=== PATIENT | female | born 1950 | race Caucasian/White ===

== ENCOUNTER 2016-10-19 13:31 | Outpatient (CLI) | payer OTHER ==
--- NOTE | 2016-10-19 14:49 | RAD ---
AP VIEW CHEST WELL SUPINE AND UPRIGHT VIEWS ABDOMEN: DATE: 10/19/16. HISTORY: Abdominal distention for 3 months. FINDINGS: AP view chest as well as supine and upright views of the abdomen were obtained. AP view chest is unremarkable. No evidence of active intrathoracic disease is seen. Two views abdomen demonstrate abdominal gas pattern to be nonspecific. No evidence of obstruction o r ileus is seen. No dilated loops of bowel seen. No evidence of free intraperitoneal air is seen. IMPRESSION: Unremarkable AP view chest and 2 views abdomen. POS: [facility]
== END 2016-10-19 13:32 | disposition home or self-care (01) ==
LOC: MADRAD 13:31
PROVIDERS: ATTEND General Practice
DX: R14.0 Abdominal distension (gaseous) (principal)
CPT/HCPCS: 74022

== ENCOUNTER 2017-04-21 12:57 | Outpatient (CLI) | payer MEDICARE ==
--- NOTE | 2017-04-21 15:55 | ULT ---
ULTRASOUND UPPER CHEST AT THE STERNAL NOTCH 04/21/17 INDICATION: There is a palpable area of fullness at this region. No subcutaneous mass identified by ultrasound. Subcutaneous adipose at this level is seen and may cor relate to the palpable fullness. IMPRESSION: No evidence of mass seen by ultrasound. POS: [facility]
== END 2017-04-21 12:58 | disposition home or self-care (01) ==
LOC: MADULT 12:57
PROVIDERS: ATTEND General Practice
DX: R22.1 Localized swelling, mass and lump, neck (principal)
CPT/HCPCS: 76999

== ENCOUNTER 2018-03-10 14:04 | Outpatient (CLI) | payer MEDICARE ==
--- NOTE | 2018-03-10 15:46 | RAD ---
LUMBAR SPINE THREE VIEWS: 03/10/18 HISTORY: Back pain. FINDINGS: There is compression of the L3 vertebral body with about 40% loss of height. No subluxation is seen. There are vascular calcifications. IMPRESSION: Compression fracture of L3. POS: [facility]
--- NOTE | 2018-03-10 15:51 | RAD ---
PELVIC MINIMUM THREE VIEWS: History: 67-year-old female with history of low back pain without recent trauma. FINDINGS: Three views of the pelvis performed. There are some degenerative changes of the hip joints and AC jaquan nts as well as lumbar spondylosis with prominent vascular calcifications. No evidence for acute fract ure or dislocation. IMPRESSION: Degenerative changes both hip joints and SI joints without acute fracture or dislocation. POS: [facility]
== END 2018-03-10 14:05 | disposition home or self-care (01) ==
LOC: MADRAD 14:04
PROVIDERS: ATTEND General Practice
DX: M54.5 Low back pain (principal); R10.2 Pelvic and perineal pain; S32.039A Unspecified fracture of third lumbar vertebra, initial encounter for closed fracture
CPT/HCPCS: 72110; 72190

== ENCOUNTER 2018-03-28 13:46 | Outpatient (CLI) | payer MEDICARE ==
[2018-03-28 14:30] LABS: Albumin 3.6 g/dL (3.4-4.8); Anion Gap 15 mmol/L (10-20); BUN (Urea Nitrogen) 38 mg/dL (9.8-20.1); BUN/Creatinine Ratio 18.91; Calc. Creatinine Clearance 0 mL/min (70-130); Calcium 9.3 mg/dL (7.8-10.44); Carbon Dioxide 27 mmol/L (23-31); Chloride 102 mmol/L (98-107); Estimated GFR-MDRD 25; Glucose 71 mg/dL (80-115); Phosphorus 3.1 mg/dL (2.3-4.7); Potassium 4.4 mmol/L (3.5-5.1); Sodium 140 mmol/L (136-145)
[2018-03-28 17:31] LABS: Bilirubin Negative (Negative); Blood, Urine Negative (Negative); Glucose, Urine (Dipstick) Negative (Negative); Leukocyte Trace (Negative); Nitrite Positive (Negative); Protein, Urine (Dipstick) Negative (Neg-Trace); Urobilinogen 0.2 mg/dL (0.2-1.0); pH, Urine 6.5 (5.0-9.0)
[2018-03-28 17:32] LABS: Clarity Hazy (Clear)
[2018-03-28 17:41] LABS: Bacteria/HPF 4+ HPF (None Seen); RBC/HPF None Seen HPF (0-3); Squamous Epithelial 0-3 HPF (0-3)
[2018-03-28 20:50] LABS: Creatinine, Urine 53.11 mg/dL (47-110)
[2018-03-28 20:52] LABS: Protein, Urine Random Quant Less than 10 mg/dL (1-14)
== END 2018-03-28 13:47 | disposition home or self-care (01) ==
LOC: MADLAB 13:46
PROVIDERS: ATTEND General Practice
DX: M48.56XD Collapsed vertebra, not elsewhere classified, lumbar region, subsequent encounter for fracture with routine healing (principal); K74.60 Unspecified cirrhosis of liver
CPT/HCPCS: 80069; 81003; 81015; 82306; 82570; 83970; 84156

== ENCOUNTER 2018-04-21 14:38 | Outpatient (CLI) | payer MEDICARE ==
--- NOTE | 2018-04-21 16:49 | RAD ---
LUMBAR SPINE 3 VIEWS: Date: 04/21/18 HISTORY: Back pain. FINDINGS: Comparison made with exam of 03/10/18. FINDINGS/IMPRESSION: Compression of L3 vertebral body with about 40% loss of height is stable. There are new compressions involving the L1 and L2 vertebrae (moderate at L1 and mild at L2). No subluxation is seen. Vascular c alcifications are present. POS: [facility]
== END 2018-04-21 14:39 | disposition home or self-care (01) ==
LOC: MADRAD 14:38
PROVIDERS: ATTEND General Practice
DX: M54.5 Low back pain (principal); I70.90 Unspecified atherosclerosis
CPT/HCPCS: 72100

== ENCOUNTER 2018-05-30 13:47 | Outpatient (CLI) | payer MEDICARE ==
[2018-05-30 14:01] LABS: Anion Gap 17 mmol/L (10-20); BUN (Urea Nitrogen) 30 mg/dL (9.8-20.1); Calc. Creatinine Clearance 0 mL/min (70-130); Calcium 9.3 mg/dL (7.8-10.44); Carbon Dioxide 22 mmol/L (23-31); Chloride 103 mmol/L (98-107); Estimated GFR-MDRD 33; Glucose 73 mg/dL (80-115); Potassium 4.6 mmol/L (3.5-5.1); Sodium 137 mmol/L (136-145)
== END 2018-05-30 13:48 | disposition home or self-care (01) ==
LOC: MADLAB 13:47
PROVIDERS: ATTEND General Practice
DX: K74.60 Unspecified cirrhosis of liver (principal); M48.56XD Collapsed vertebra, not elsewhere classified, lumbar region, subsequent encounter for fracture with routine healing
CPT/HCPCS: 80048

== ENCOUNTER 2018-05-31 15:06 | Outpatient (CLI) | payer MEDICARE ==
[2018-05-31 15:43] LABS: Bilirubin Negative (Negative); Blood, Urine Negative (Negative); Glucose, Urine (Dipstick) Negative (Negative); Leukocyte Small (Negative); Nitrite Negative (Negative); Protein, Urine (Dipstick) Negative (Neg-Trace); Specific Gravity, Urine 1.015 (1.005-1.030); Urobilinogen 0.2 mg/dL (0.2-1.0)
[2018-05-31 16:13] LABS: Bacteria/HPF 4+ HPF (None Seen); Clarity Slightly Cloudy (Clear); RBC/HPF 0-3 HPF (0-3)
== END 2018-05-31 15:07 | disposition home or self-care (01) ==
LOC: MADLAB 15:06
PROVIDERS: ATTEND General Practice
DX: K74.60 Unspecified cirrhosis of liver (principal); M48.56XD Collapsed vertebra, not elsewhere classified, lumbar region, subsequent encounter for fracture with routine healing
CPT/HCPCS: 81001

== ENCOUNTER 2018-07-18 15:23 | Outpatient (CLI) | payer MEDICARE ==
[2018-07-18 16:34] LABS: Anion Gap 14 mmol/L (10-20); BUN (Urea Nitrogen) 30 mg/dL (9.8-20.1); Calc. Creatinine Clearance 0 mL/min (70-130); Calcium 8.7 mg/dL (7.8-10.44); Carbon Dioxide 24 mmol/L (23-31); Chloride 106 mmol/L (98-107); Estimated GFR-MDRD 37; Glucose 82 mg/dL (80-115); Potassium 4.3 mmol/L (3.5-5.1); Sodium 140 mmol/L (136-145)
== END 2018-07-18 15:24 | disposition home or self-care (01) ==
LOC: MADLAB 15:23
PROVIDERS: ATTEND General Practice
DX: M48.56XD Collapsed vertebra, not elsewhere classified, lumbar region, subsequent encounter for fracture with routine healing (principal); M47.816 Spondylosis without myelopathy or radiculopathy, lumbar region
CPT/HCPCS: 80048

== ENCOUNTER 2018-08-15 12:29 | Outpatient (CLI) | payer MEDICARE ==
[2018-08-15 12:59] LABS: ALT (SGPT) Less than 7 U/L (8-55); AST (SGOT) 16 U/L (5-34); Alkaline Phosphatase 128 U/L (40-150); Bilirubin, Direct 0.4 mg/dL (0.1-0.3); Bilirubin, Total 0.8 mg/dL (0.2-1.2); Protein, Total 5.2 g/dL (6.0-8.3)
== END 2018-08-15 12:30 | disposition home or self-care (01) ==
LOC: MADLAB 12:29
PROVIDERS: ATTEND Physician Assistant
DX: M48.56XD Collapsed vertebra, not elsewhere classified, lumbar region, subsequent encounter for fracture with routine healing (principal); M47.816 Spondylosis without myelopathy or radiculopathy, lumbar region
CPT/HCPCS: 80076

== ENCOUNTER 2018-10-24 13:39 | Outpatient (CLI) | payer MEDICARE ==
[2018-10-24 14:03] LABS: ALT (SGPT) 11 U/L (8-55); AST (SGOT) 28 U/L (5-34); Albumin 3.4 g/dL (3.4-4.8); Alkaline Phosphatase 140 U/L (40-150); Anion Gap 15 mmol/L (10-20); BUN (Urea Nitrogen) 39 mg/dL (9.8-20.1); Bilirubin, Total 0.9 mg/dL (0.2-1.2); Calc. Creatinine Clearance 0 mL/min (70-130); Calcium 8.8 mg/dL (7.8-10.44); Carbon Dioxide 26 mmol/L (23-31); Chloride 100 mmol/L (98-107); Estimated GFR-MDRD 32; Glucose 69 mg/dL (80-115); Potassium 4.1 mmol/L (3.5-5.1); Protein, Total 6.4 g/dL (6.0-8.3); Sodium 137 mmol/L (136-145)
[2018-10-24 14:34] LABS: #Basophils 0.1 thou/uL (0.0-0.2); #Eosinphils 0.1 thou/uL (0.0-0.7); #Lymphocytes 2.2 thou/uL (1.20-3.40); #Monocytes 0.8 thou/uL (0.11-0.59); #Neutrophils 5.1 thou/uL (1.40-6.50); %Basophils 0.7 % (0.0-1.0); %Eosinophils 1.4 % (0.0-10.0); %Lymphocytes 26.8 % (21.0-51.0); %Monocytes 9.7 % (0.0-10.0); %Neutrophils 61.4 % (42.0-75.0); Anisocytosis MODERATE=16-30 cells (100X) (0-5/hpf); Hemoglobin 9.9 g/dL (12.0-16.0); Hypochromia SLIGHT = 6-15 cells (100X) (0-5/hpf); MDiff Complete? YES; Mean Corpuscular Hemoglobin 22.2 pg (27.0-31.0); Mean Corpuscular Volume 74.2 fL (78.0-98.0); Mean Platelet Volume 5.8 fL (7.4-10.4); Microcytosis SLIGHT = 6-15 cells (100X) (0-5/hpf); Platelet Count 350 thou/uL (130-400); Polychromasia SLIGHT = 2-3 cells (100X) (0-2/hpf); RBC Distribution Width 21.7 % (11.5-14.5); Red Blood Cell (RBC) Count 4.44 mill/uL (4.20-5.40); White Blood Cell (WBC) Count 8.3 thou/uL (4.8-10.8)
== END 2018-10-24 13:40 | disposition home or self-care (01) ==
LOC: MADLAB 13:39
PROVIDERS: ATTEND General Practice
DX: D50.0 Iron deficiency anemia secondary to blood loss (chronic) (principal); K31.89 Other diseases of stomach and duodenum; K74.69 Other cirrhosis of liver
CPT/HCPCS: 80053; 85025